=== PATIENT | female | born 1965 | race Caucasian/White ===

== ENCOUNTER 2016-09-30 17:51 | Emergency (ER) | payer BC ==
[~2016-09-30] VITALS: Ht 172.7 cm; Wt 95.3 kg
[~2016-09-30 17:51] MED LIST: ASA81 PO; CLOP75TA2 PO; GLU850 PO; INSU100V9 SUBCUT; LIP40 PO; METO25TA3 PO; NITSL SL; OMEG1CAP98 PO; SITA100T7 PO
[2016-09-30 17:55] VITALS: BP_SYST 164
[2016-09-30] MEDS ORDERED: KETOROLAC TROMETHAMINE 60 MG/2 ML VIAL IM ONE (18:15)
[2016-09-30 18:59] VITALS: BP_SYST 164
== END 2016-09-30 18:59 | disposition home or self-care (01) ==
LOC: SED 17:51
DX: S92.425A Nondisplaced fracture of distal phalanx of left great toe, initial encounter for closed fracture (principal); E11.42 Type 2 diabetes mellitus with diabetic polyneuropathy; K21.9 Gastro-esophageal reflux disease without esophagitis; I10 Essential (primary) hypertension; Z79.82 Long term (current) use of aspirin; X58.XXXA Exposure to other specified factors, initial encounter; Y93.89 Activity, other specified; Y92.89 Other specified places as the place of occurrence of the external cause; Y99.8 Other external cause status; Z79.899 Other long term (current) drug therapy
CPT/HCPCS: 73630; 96372; 99284; J1885

== ENCOUNTER 2017-01-30 03:10 | Emergency (ER) | payer BC ==
[~2017-01-30] VITALS: Ht 165.1 cm; Wt 112.5 kg
[2017-01-30 03:10] VITALS: BP_SYST 154
[2017-01-30 04:20] LABS: BILIRUBIN,URINE NEGATIVE (NEGATIVE); CLARITY/URINE CLEAR (CLEAR); COLOR,URINE YELLOW (YELLOW); GLUCOSE,URINE 3+ (NEGATIVE); KETONES,URINE NEGATIVE (NEGATIVE); LEUKOCYTE ESTERASE ,URINE NEGATIVE (NEGATIVE); NITRITE, URINE NEGATIVE (NEGATIVE); PH,URINE 5.5 (5.0-8.0); PROTEIN URINE 1+ (NEGATIVE); UROBILINOGEN,URINE 0.2 (0.2-1.0)
[2017-01-30 04:21] LABS: BLOOD, URINE TRACE (NEGATIVE)
[2017-01-30 04:43] LABS: BACTERIA,URINE FEW /HPF (None Seen); MUCUS,URINE None Seen /LPF (None Seen); RBC,URINE 0-3 /HPF (0-3); WBC,URINE 0-3 /HPF (0-3); YEAST,URINE Few /HPF (None Seen)
[2017-01-30 05:18] VITALS: BP_SYST 148
== END 2017-01-30 05:18 | disposition home or self-care (01) ==
LOC: SED 03:10
DX: B37.3 Candidiasis of vulva and vagina (principal); I25.2 Old myocardial infarction; E11.29 Type 2 diabetes mellitus with other diabetic kidney complication; N28.9 Disorder of kidney and ureter, unspecified; K21.9 Gastro-esophageal reflux disease without esophagitis; I10 Essential (primary) hypertension; F41.9 Anxiety disorder, unspecified; F32.9 Major depressive disorder, single episode, unspecified; Z79.82 Long term (current) use of aspirin; Z79.4 Long term (current) use of insulin
CPT/HCPCS: 81000-TC; 87086; 99284

== ENCOUNTER 2017-05-15 18:00 | Emergency (ER) | payer BC ==
[~2017-05-15] VITALS: Ht 165.1 cm; Wt 110.2 kg
[2017-05-15 18:00] VITALS: BP_SYST 191
[2017-05-15] MEDS ORDERED: NACL 0.9% 1,000 ML IV ONE (18:13)
[2017-05-15] MEDS ORDERED: ASPIRIN 325 MG TABLET PO ONE (18:15)
[2017-05-15] MEDS ORDERED: CLOPIDOGREL BISULFATE 75 MG TABLET PO ONE (18:15)
[2017-05-15 18:54] LABS: BASOPHILS % (AUTO) 0.3 % (0.0-2.0); EOSINOPHILS # (AUTO) 0.3 K/uL (0.0-0.4); EOSINOPHILS % (AUTO) 2.5 % (0.0-4.0); HEMATOCRIT 40.4 % (36-48); HEMOGLOBIN 13.5 g/dL (12.0-16.0); LYMPHOCYTES # (AUTO) 2.6 K/uL (1.0-5.5); LYMPHOCYTES % (AUTO) 24.3 % (20.5-51.5); MEAN CORPUSCULAR HEMOGLOBIN 29 pg (27-31); MEAN CORPUSCULAR HGB CONC 34 % (32-36); MEAN CORPUSCULAR VOLUME 86 fL (79.0-98.0); MONOCYTES # (AUTO) 0.5 K/uL (0.0-1.0); MONOCYTES % (AUTO) 4.7 % (1.7-9.3); NEUTROPHILS # (AUTO) 7.4 K/uL (1.8-7.7); NEUTROPHILS % (AUTO) 68.2 % (40.0-70.0); PLATELET COUNT (AUTO) 309 K/uL (130-430); RED BLOOD CELL COUNT(AUTO) 4.68 MIL/uL (4.2-6.2); WHITE BLOOD COUNT (AUTO) 10.8 K/uL (4.8-10.8)
[2017-05-15 19:00] LABS: CALCIUM 10.7 mg/dL (8.4-11.0); CREATININE 1.27 mg/dL (0.55-1.30)
[2017-05-15 19:03] LABS: INR 0.9 (0.8-1.2); PROTHROMBIN TIME 9.1 SECS (9.5-12.5)
[2017-05-15 19:16] LABS: ALBUMIN 3.7 g/dL (3.4-4.8); TOTAL BILIRUBIN 0.2 mg/dL (0.0-1.0)
[2017-05-15 19:20] LABS: BILIRUBIN,URINE NEGATIVE (NEGATIVE); BLOOD, URINE 1+ (NEGATIVE); CLARITY/URINE CLOUDY (CLEAR); COLOR,URINE YELLOW (YELLOW); GLUCOSE,URINE 2+ (NEGATIVE); KETONES,URINE NEGATIVE (NEGATIVE); LEUKOCYTE ESTERASE ,URINE 1+ (NEGATIVE); NITRITE, URINE POSITIVE (NEGATIVE); PH,URINE 5.5 (5.0-8.0); PROTEIN URINE 3+ (NEGATIVE); UROBILINOGEN,URINE 0.2 (0.2-1.0)
[2017-05-15 19:26] LABS: BACTERIA,URINE MANY /HPF (None Seen); WBC,URINE >100 /HPF (0-3)
[2017-05-15] MEDS ORDERED: methylPREDNISolone SOD SUCC/PF 62.5 MG/ML VIAL IVP ONE (19:45)
[2017-05-15] MEDS ORDERED: ALBUTEROL SULFATE 0.083% 2.5 MG/3 ML VIAL.NEB IH ONE (19:45)
[2017-05-15] MEDS ORDERED: cefTRIAXone 2 GM VIAL ONE (20:01)
[2017-05-15 21:01] VITALS: BP_SYST 165
== END 2017-05-15 21:01 | disposition home or self-care (01) ==
LOC: SED 18:00
DX: R07.89 Other chest pain (principal); N39.0 Urinary tract infection, site not specified; I10 Essential (primary) hypertension; E11.29 Type 2 diabetes mellitus with other diabetic kidney complication; N28.9 Disorder of kidney and ureter, unspecified; I25.2 Old myocardial infarction; F41.9 Anxiety disorder, unspecified; Z90.49 Acquired absence of other specified parts of digestive tract; Z79.4 Long term (current) use of insulin; Z79.82 Long term (current) use of aspirin; Z79.899 Other long term (current) drug therapy; Z95.9 Presence of cardiac and vascular implant and graft, unspecified
CPT/HCPCS: 36415; 71045; 80053; 81000; 81025; 82150; 82550; 83605; 83690; 84484; 85025; 85610; 85730; 86710; 87040; 87086; 87186; 93005; 94640; 96361; 96365; 96375; 99285; J0696; J2930; J7030; J7060

== ENCOUNTER 2017-07-09 13:01 | Emergency (ER) | payer BC ==
[~2017-07-09] VITALS: Ht 165.1 cm; Wt 112.5 kg
[2017-07-09 13:05] VITALS: BP_SYST 124
[2017-07-09] MEDS ORDERED: NACL 0.9% 1,000 ML IV ONE ×2 (13:06→15:30)
[2017-07-09] MEDS ORDERED: ASPIRIN 81 MG TAB.CHEW PO ONE (13:15)
[2017-07-09] MEDS ORDERED: MORPHINE 4 MG/ML INJ. SYRINGE IVP ONE (13:15)
[2017-07-09] MEDS ORDERED: ONDANSETRON HCL 4 MG/2 ML VIAL IVP ONE (13:15)
[2017-07-09] MEDS ORDERED: NITROGLYCERIN 0.4 MG TAB.SUBL SL ONE (13:15)
[2017-07-09 13:28] LABS: BASOPHILS # (AUTO) 0.2 K/uL (0.0-0.2); BASOPHILS % (AUTO) 2.3 % (0.0-2.0); EOSINOPHILS # (AUTO) 0.2 K/uL (0.0-0.4); HEMATOCRIT 40.7 % (36-48); HEMOGLOBIN 13.8 g/dL (12.0-16.0); LYMPHOCYTES % (AUTO) 31.9 % (20.5-51.5); MEAN CORPUSCULAR HEMOGLOBIN 29 pg (27-31); MEAN CORPUSCULAR HGB CONC 34 % (32-36); MEAN CORPUSCULAR VOLUME 85 fL (79.0-98.0); MONOCYTES # (AUTO) 0.7 K/uL (0.0-1.0); MONOCYTES % (AUTO) 7.3 % (1.7-9.3); NEUTROPHILS # (AUTO) 5.2 K/uL (1.8-7.7); NEUTROPHILS % (AUTO) 56.5 % (40.0-70.0); PLATELET COUNT (AUTO) 259 K/uL (130-430); RED BLOOD CELL COUNT(AUTO) 4.77 MIL/uL (4.2-6.2); RED CELL DISTRIBUTION WIDTH 13.4 % (9.0-15.0); WHITE BLOOD COUNT (AUTO) 9.3 K/uL (4.8-10.8)
[2017-07-09 13:38] LABS: CREATININE 1.29 mg/dL (0.55-1.30); POTASSIUM 3.8 mmol/L (3.5-5.1)
[2017-07-09 13:40] LABS: INR 0.9 (0.8-1.2); PROTHROMBIN TIME 9.3 SECS (9.5-12.5)
[2017-07-09 13:43] LABS: ALBUMIN 3.6 g/dL (3.4-4.8); TOTAL BILIRUBIN 0.3 mg/dL (0.0-1.0)
[2017-07-09] MEDS ORDERED: ACETAMINOPHEN 500 MG TABLET PO ONE (15:30)
[2017-07-09 15:50] LABS: BILIRUBIN,URINE NEGATIVE (NEGATIVE); CLARITY/URINE CLOUDY (CLEAR); COLOR,URINE YELLOW (YELLOW); GLUCOSE,URINE 3+ (NEGATIVE); KETONES,URINE NEGATIVE (NEGATIVE); LEUKOCYTE ESTERASE ,URINE 1+ (NEGATIVE); NITRITE, URINE NEGATIVE (NEGATIVE); PROTEIN URINE 2+ (NEGATIVE); UROBILINOGEN,URINE 0.2 (0.2-1.0)
[2017-07-09 15:51] LABS: BLOOD, URINE TRACE (NEGATIVE)
[2017-07-09 16:07] LABS: BACTERIA,URINE MANY /HPF (None Seen); RBC,URINE 0-3 /HPF (0-3); WBC,URINE 50-80 /HPF (0-3)
[2017-07-09 16:08] LABS: MUCUS,URINE None Seen /LPF (None Seen)
[2017-07-09] MEDS ORDERED: cefTRIAXone 1 GM IVPB PREMIX 50 ML IV ONE (17:15)
[2017-07-09] MEDS ORDERED: MECLIZINE HCL 25 MG TABLET (ANITVERT) PO ONE (17:30)
[2017-07-09 17:45] VITALS: BP_SYST 157
== END 2017-07-09 17:45 | disposition home or self-care (01) ==
LOC: SED 13:01
DX: N39.0 Urinary tract infection, site not specified (principal); R42 Dizziness and giddiness; R07.89 Other chest pain; N28.9 Disorder of kidney and ureter, unspecified; F41.9 Anxiety disorder, unspecified; I25.2 Old myocardial infarction; F32.9 Major depressive disorder, single episode, unspecified; E11.29 Type 2 diabetes mellitus with other diabetic kidney complication; Z95.9 Presence of cardiac and vascular implant and graft, unspecified; Z79.82 Long term (current) use of aspirin; Z79.4 Long term (current) use of insulin; Z79.899 Other long term (current) drug therapy
CPT/HCPCS: 36415; 71045; 80053; 81000; 82550; 83690; 84484; 85025; 85610; 85730; 87086; 87186; 93005; 96361; 96365; 96375; 99285; J0696; J2270; J2405; J7030; J8597

== ENCOUNTER 2018-06-27 22:45 | Emergency (ER) | payer BC ==
[~2018-06-27] VITALS: Ht 165.1 cm; Wt 109.8 kg
[2018-06-27 22:45] VITALS: BP_SYST 124
[~2018-06-27 22:45] MED LIST changes: +SITA100T11 PO; -SITA100T7 PO
[2018-06-28] MEDS ORDERED: IPRATROPIUM BROM 0.5 MG/2.5 ML VIAL.NEB (ATROVENT) IH ONE
[2018-06-28] MEDS ORDERED: LevALBUTEROL HCL 1.25 MG/0.5 ML *CONC.* VIAL.NEB (XOPENEX CONC.) INH ONE
[2018-06-28] MEDS ORDERED: PREDNISONE 20 MG TABLET PO ONE (01:45)
[2018-06-28 01:48] VITALS: BP_SYST 128
== END 2018-06-28 01:48 | disposition home or self-care (01) ==
LOC: SED 22:45
DX: J40 Bronchitis, not specified as acute or chronic (principal); J98.01 Acute bronchospasm; I25.2 Old myocardial infarction; K21.9 Gastro-esophageal reflux disease without esophagitis; E11.9 Type 2 diabetes mellitus without complications; I10 Essential (primary) hypertension; F32.9 Major depressive disorder, single episode, unspecified; F41.9 Anxiety disorder, unspecified; Z79.82 Long term (current) use of aspirin; Z79.899 Other long term (current) drug therapy
CPT/HCPCS: 71045; 94640; 99283; J7512; J7612